=== PATIENT | male | born 1990 | race Two or more races ===

== ENCOUNTER 2025-01-09 15:14 | Emergency (ER) | payer MEDICAID, OTHER ==
[~2025-01-09] VITALS: Ht 172.7 cm; Wt 77.2 kg
[2025-01-09 15:37] LABS: Hematocrit 46.5 % (41.0-53.0); Hemoglobin 16.0 g/dL (13.5-17.5); Mean Corpuscular Hemoglobin 29.3 pg (28.0-32.0); Mean Corpuscular Volume 85.2 fL (80.0-100.0); Nucleated Red Blood Cells % 0.2 %
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
[2025-01-09 15:52] LABS: Urine Protein, UAD Negative (Negative)
[2025-01-09 15:55] LABS: Alanine Aminotransferase 29 U/L (7-40); Albumin 4.5 g/dL (3.2-4.8); Alkaline Phosphatase 72 U/L (46-116); Anion Gap 7 (5-15); BUN/Creatinine Ratio 13.0 (10.0-20.0); Bilirubin, Total 0.4 mg/dL (0.2-1.0); Blood Urea Nitrogen 10 mg/dL (9-23); Calcium 9.1 mg/dL (8.7-10.4); Chloride 104 mmol/L (98-107); Glucose 91 mg/dL (74-106); Potassium 4.3 mmol/L (3.5-5.1); Sodium 142 mmol/L (136-145); Total Protein 7.7 g/dL (5.7-8.2)
[2025-01-09 15:56] LABS: Carbon Dioxide 31 mmol/L (20-31)
[2025-01-09 16:03] LABS: Amphetamine Screen, Urine Neg (NEGATIVE); Barbiturate Scree,Urine Neg (NEGATIVE); Benzodiazephine Screen, Urine Neg (NEGATIVE); Cannabinoid Screen, Urine Neg (NEGATIVE); Cocaine Screen, Urine Neg (NEGATIVE); Opiate Scree,Urine Neg (NEGATIVE); Phencyclidine Screen, Urine Neg (NEGATIVE)
--- NOTE | 2025-01-09 17:47 | DVH ---
CHEST RADIOGRAPH Indication: CHEST PAIN Technique: Single frontal view of the chest was obtained Comparison: None FINDINGS: Lines and Tubes: None Lungs: No focal consolidation. Pleura: No effusion. No pneumothorax. Cardiomediastinal contours: Unremarkable Bones: No acute osseous abnormality. IMPRESSION: 1. No acute cardiopulmonary disease.
[2025-01-09] MEDS: KETOROLAC TROMETH 60MG/2ML VIAL IM ONE (19:39)
[2025-01-09 19:41] VITALS: BP 147/103; PULSE 78; RESP 20; TEMP 98.4
[2025-01-09 19:45] VITALS: O2SAT 98
--- NOTE | 2025-01-11 10:09 | ECG ---
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
--- NOTE | 2025-01-11 10:10 | ECG ---
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
--- NOTE | 2025-01-11 10:10 | ECG ---
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
== END 2025-01-09 20:00 | disposition home or self-care (01) ==
LOC: ER 15:14
DX: R07.89 Other chest pain (principal)
CPT/HCPCS: 36415; 71045; 80053; 80307; 81001; 83880; 84484; 85025; 93005; 96372; 99285; J1885